=== PATIENT | male | born 1970 ===

== ENCOUNTER 2019-09-19 12:26 | Emergency (ER) | payer MEDICAID, OTHER ==
[~2019-09-19] VITALS: Ht 170.2 cm; Wt 85.0 kg
[2019-09-19 12:31] VITALS: BP 105/71
--- NOTE | 2019-09-19 12:38 | NUR ---
Pt BIB [facility] for ETOH. [place] the bus [place] sleeping.Denies SI, HI. Pt in bed on cont pvc monitor, spo2, bq q 30 min, side rails up x2, call light in reach, urinal on side rails. RR are even 18/min. Pt in no distress.reporst no pain. Awating MD to see. Reports drinking 4 40oz drinks today.
--- NOTE | 2019-09-19 13:32 | NUR ---
DAMIAN PICHARDO AT BEDSIDE FOR EVAL. PT DOZING ON [facility], AWAKENS EASILY TO NAME BEING CALLED. PT SURLY WITH STAFF CALLING STAFF "SUZI ROME". PT AO X 4. PT STEADY UPON AMBULATION TO RESTROOM AND BACK TO [facility]. PT REFUSES TO WEAR BLOOD PRESSURE CUFF OR OXYGEN MONITOR. CALL LIGHT WITHIN REACH. WILL CONT TO MONITOR PT.
--- NOTE | 2019-09-19 14:12 | NUR ---
PT LAST SEEN AMBULATED STEADILY TO RESTROOM BY RN. RAD LOOKING FOR PT, PT NOT FOUND IN RESTROOM, LOBBY OR ANOTHER PT ROOM. PHONE AND ID FOUND ON COUNTER, PLACED IN BAG WITH PT'S NAME AND WALKED TO SECURITY BY THIS RN. PER SCREENER AT FRONT DOOR, A PERSON MATCHING PT'S DESCRIPTION WAS SEEN ASKING PT'S IN LOBBY FOR THINGS, THEN AMBLATING OUT THE FRONT DOOR. DAMIAN PICHARDO NOTIFIED. PAINTER HAND NOTIFIED.
== END 2019-09-19 14:16 | disposition left against medical advice (07) ==
LOC: ED 14:10
DX: F10.120 Alcohol abuse with intoxication, uncomplicated (principal); R41.82 Altered mental status, unspecified; R07.89 Other chest pain; Y90.0 Blood alcohol level of less than 20 mg/100 ml
CPT/HCPCS: 99283